=== PATIENT | male | born 1965 | race Caucasian/White ===

== ENCOUNTER 2016-10-12 22:27 | Emergency (ER) | payer OTHER ==
[2016-10-12] MEDS ORDERED: LISINOPRIL20 MG PO (22:53)
[2016-10-12] MEDS ORDERED: PERCOCET 5-3251 EACH PO (23:19)
== END 2016-10-12 23:59 | disposition home or self-care (01) ==
LOC: ED 22:27
DX: S43.101A Unspecified dislocation of right acromioclavicular joint, initial encounter (principal); S30.811A Abrasion of abdominal wall, initial encounter; Z79.899 Other long term (current) drug therapy; V29.9XXA Motorcycle rider (driver) (passenger) injured in unspecified traffic accident, initial encounter
CPT/HCPCS: 71010; 73030; 96374; 96375; 99284; J2270; J2405; J7030